=== PATIENT | female | born 1980 | race Caucasian/White ===

== ENCOUNTER 2016-05-18 08:04 | Emergency (ER) | payer OTHER ==
[2016-05-18 08:24] VITALS: BP 107/72
--- NOTE | 2016-05-18 09:34 | UC ---
Gem Ramirez SooYoung, scribed for Cecily Grubre DO on 05/18/16 at 0827 . Ear Complaint HPI - HPI Summary HPI Summary: A 35 y/o F presents to [facility] with c/o L ear pain onset last night. Pt states she had a "head cold" onset two days ago, but last night it "all went to L ear." Associated sx: muffled hearing, head congestion, mild nonproductive cough, sore throat resolved. Denies: SOB, CP, n/v, fever, abd pain. Pt is 37 weeks . A0. Denies complications during the prior or current . She's had a few contractions two days ago. No vag bleeding, no PAVON currently, no epigaastric pain or visual changes. She notes having peripheral tingling and numbness in hands and feet for past few weeks, but her OB-AIR H[facility]MER STRIPPER is aware, monitoring. - History of Current Complaint Chief Complaint: UCEar Stated Complaint: LEFT EAR PAIN Time Seen by Provider: 05/18/16 08:21 Hx Obtained From: Patient Hx Last Menstrual Period: 07/2015 ?: Yes Onset/Duration: Lasting Days, Still Present Severity Initially: Moderate Severity Currently: Moderate Pain Intensity: 6 Pain Scale Used: 0-10 Numeric Aggravating Factors: Nothing Alleviating Factors: Nothing Associated Signs/Symptoms: Positive: Hearing Loss - "muffled" - Allergies/Home Medications Allergies/Adverse Reactions: Allergies Allergy/AdvReac Type Severity Reaction Status Date / Time No Known Allergies Allergy Verified 09/23/15 15:25 Home Medications: Home Medications Acetaminophen [Tylenol] 05/18/16 [History] Lactobacillus [Probiotic] 05/18/16 [History] PMH/Surg Hx/FS Hx/Imm Hx Previously Healthy: Yes Endocrine History Of: Denies: Diabetes, Thyroid Disease Cardiovascular History Of: Denies: Cardiac Disorders, Hypertension Respiratory History Of: Denies: COPD, Asthma GI/ History Of: Denies: Ulcer - Surgical History Surgical History: None - Family History Known Family History: Positive: Hypertension Negative: Cardiac Disease, Diabetes - Social History Occupation: Employed Full-time Lives: With Family Alcohol Use: None Substance Use Type: None Smoking Status (MU): Never Smoked Tobacco Have You Smoked in the Last Year: No - Immunization History Most Recent Influenza Vaccination: patient requests Most Recent Tetanus Shot: 10/03/14 Most Recent Pneumonia Vaccination: not indicated Review of Systems Constitutional: Negative Skin: Negative Eyes: Negative ENT: Sore Throat - resolved, Ear Ache - L ear pain, muffled hearing, Other - pos : head congestion Respiratory: Cough - mild, nonproductive Cardiovascular: Negative Gastrointestinal: Negative Genitourinary: Negative Motor: Negative Neurovascular: Negative Musculoskeletal: Negative Neurological: Negative Psychological: Negative All Other Systems Reviewed And Are Negative: Yes Physical Exam Triage Information Reviewed: Yes Appearance: Well-Appearing, No Pain Distress, Well-Nourished Vital Signs: Initial Vital Signs Temp 98.2 F 05/18/16 08:11 Pulse 72 05/18/16 08:11 Resp 16 05/18/16 08:11 BP 107/72 05/18/16 08:11 Pulse Ox 99 05/18/16 08:11 Vital Signs Reviewed: Yes Eyes: Positive: Conjunctiva Clear. Negative: Discharge ENT: Positive: Hearing grossly normal, Pharyngeal erythema - mild, TM bulging, TM red. Negative: Tonsillar swelling, Tonsillar exudate, Trismus, Muffled/ hoarse voice Neck exam: Normal Neck: Positive: Supple Respiratory: Positive: Lungs clear, Normal breath sounds, No respiratory distress, No accessory muscle use Cardiovascular: Positive: RRR, No Murmur Musculoskeletal Exam: Normal Neurological: Positive: Alert, Muscle Tone Normal Psychological Exam: Normal Psychological: Positive: Age Appropriate Behavior Skin Exam: Normal, Other - pos: warm, dry, nml color Ear Complaint Course/Dx - Differential Dx/Diagnosis Differential Diagnosis/HQI/PQRI: Cerumen Impaction, Otitis Externa, Otitis Media , URI Provider Diagnoses: L otitis media Discharge - Discharge Plan Condition: Stable Disposition: HOME Prescriptions: Amoxicillin CAP* [Amoxicillin 500 MG CAP*] 500 mg PO Q12H #20 cap Patient Education Materials: Otitis Media (ED) Referrals: No Primary Care Phys,NOPCP [Primary Care Provider] - [facility] [place] [facility] [Outside] Additional Instructions: As we discussed: You can take the Amoxicillin prescription right away or you can wait 1 or 2 days to see if it improves on its own. Continue taking your probiotic supplement daily. Also add probiotic-friendly foods to your diet, such as kimchi , yogurt, sauerkraut, for 1 month after finishing the prescription. It is safe to take the Amoxicillin while breast-feeding. Follow-up with your OB-AIR H[facility]IPPER on Thursday as scheduled. FOLLOW-UP CARE: You should establish with a private physician for follow-up care. If you are unable to get a timely appointment, or if you are worsening, call us or return for re-evaluation. An additional resource available to assist in finding the appropriate physician for your health care needs is the Physician Referral Center. You may contact them by calling [phone]. The documentation as recorded by the Gem whalen SooYoung accurately reflects the service I personally performed and the decisions made by me, Cecily Gruber DO.
== END 2016-05-18 09:28 | disposition home or self-care (01) ==
LOC: UCEAST 08:04
DX: O26.893 Other specified pregnancy related conditions, third trimester (principal); H66.92 Otitis media, unspecified, left ear
CPT/HCPCS: 99212; G0463

== ENCOUNTER 2016-05-28 01:10 | Inpatient (IN) | payer OTHER ==
[2016-05-28 02:19] LABS: ROM Internal QC QC Line Present
[2016-05-28 02:50] LABS: Hematocrit 34 % (35-47); Hemoglobin 11.8 g/dl (12.0-16.0); Mean Corpuscular HGB Conc 35 g/dl (31-36); Mean Corpuscular Hemoglobin 30 pg (27-31); Mean Corpuscular Volume 87 fL (80-97); Mean Platelet Volume 9 um3 (7.4-10.4); Red Blood Count 3.87 10^6/ul (4.0-5.4); Red Cell Distribution Width 13 % (10.5-15); White Blood Count 10.6 10^3/ul (3.5-10.8)
[2016-05-28] MEDS ORDERED: OBEPIDURAL* 250 ML ONE (02:52)
[2016-05-28] MEDS ORDERED: HYDROmorphone* 1 MG/ML 1 ML SYR ONE (03:27)
[2016-05-28] MEDS ORDERED: fentaNYL* 50 MCG/ML 2 ML VIAL (100 MCG VIAL) ONE (03:28)
[2016-05-28] MEDS ORDERED: Oxytocin in LR* 20 UNITS/1,000 ML BAG IVPB ONE (05:54)
[2016-05-28] MEDS ORDERED: Erythromycin OPTH OINT* APPLIC OINT BOTH EYES ONE (06:16)
[2016-05-28] MEDS ORDERED: Glucose ORAL NICU* 30 ML TUBE BUCCAL PRN (06:16)
[2016-05-28] MEDS ORDERED: Phytonadione INJ* 1 MG/0.5 ML ML IM ONE (06:16)
[2016-05-28] MEDS ORDERED: Hepatitis B Vac PF(ENGERIX-B)* 10 MCG/0.5 ML ML IM ONE (06:16)
[2016-05-28] MEDS ORDERED: Glycerin ADULT SUPP PR PRN (06:18)
[2016-05-28] MEDS ORDERED: Witch Hazel PAD* JAR TOPICAL PRN (06:18)
[2016-05-28] MEDS ORDERED: Dibucaine 1% 28.35 GM TUBE PR PRN (06:18)
[2016-05-28] MEDS ORDERED: Oxytocin in LR* 20 UNITS/1,000 ML BAG IVPB SCH (07:00)
[2016-05-28] MEDS ORDERED: Sodium Citrate/Citric Acid* 15 ML UDC PO PRN (07:36)
[2016-05-28] MEDS ORDERED: Famotidine TAB* 20 MG PO PRN (07:36)
[2016-05-28] MEDS ORDERED: OBEPIDURAL* 250 ML EPIDURAL SCH (08:00)
[2016-05-28] MEDS ORDERED: Simethicone CHEW TAB* 80 MG PO SCH (08:30)
[2016-05-28] MEDS: Ibuprofen TAB* 600 MG PO PRN ×3 (09:20→20:59)
[2016-05-28] MEDS: Docusate CAP* 100 MG PO SCH ×3 (09:24→20:59)
[2016-05-28] MEDS: Acetaminophen TAB* 325 MG PO PRN (17:45)
[2016-05-29] MEDS: Acetaminophen TAB* 325 MG PO PRN (00:19)
[2016-05-29] MEDS: Ibuprofen TAB* 600 MG PO PRN ×2 (03:39→09:21)
[2016-05-29 06:52] LABS: Hematocrit 25 % (35-47); Hemoglobin 8.7 g/dl (12.0-16.0); Mean Corpuscular HGB Conc 35 g/dl (31-36); Mean Corpuscular Hemoglobin 31 pg (27-31); Mean Corpuscular Volume 88 fL (80-97); Mean Platelet Volume 9 um3 (7.4-10.4); Red Blood Count 2.84 10^6/ul (4.0-5.4); Red Cell Distribution Width 13 % (10.5-15); White Blood Count 9.4 10^3/ul (3.5-10.8)
[2016-05-29 08:04] VITALS: BP 111/71
[2016-05-29] MEDS ORDERED: Ferrous Gluconate TAB* 324 MG TAB PO SCH (09:00)
[2016-05-29] MEDS: Docusate CAP* 100 MG PO SCH (09:20)
== END 2016-05-29 13:26 | disposition home or self-care (01) | DRG 560 ==
LOC: MCHOBOUT 01:10 → MCHOB 02:24
PROVIDERS: ADMIT Obstetrics & Gynecology; ATTEND Obstetrics & Gynecology
PROC: 4A1HX4Z Monitoring of Products of Conception, Cardiac Electrical Activity, External Approach (ICD-10-PCS; principal; 2016-05-28)
PROC: 10E0XZZ Delivery of Products of Conception, External Approach (ICD-10-PCS; 2016-05-28)
PROC: 0KQM0ZZ Repair Perineum Muscle, Open Approach (ICD-10-PCS; 2016-05-28)
DX: O70.1 Second degree perineal laceration during delivery (principal); Z37.0 Single live birth; O90.81 Anemia of the puerperium; Z3A.38 38 weeks gestation of pregnancy
CPT/HCPCS: 36415; 84112; 85025; 85027; 86850; 86900; 86901; A9270-GY; J1170; J3010

== ENCOUNTER 2016-08-09 16:31 | Emergency (ER) | payer OTHER ==
[2016-08-09] MEDS ORDERED: Fluorescein Sodium TOPICAL* 1 MG TEST ONE (16:34)
[2016-08-09] MEDS ORDERED: Tetracaine 0.5% OPTH.SOL 4 ML* 1 DROP BTL ONE (16:35)
[2016-08-09] MEDS ORDERED: BSS OPTH.SOL* BTL ONE (16:35)
[2016-08-09 16:48] VITALS: BP 111/67
--- NOTE | 2016-08-09 16:49 | UC ---
Eye Complaint HPI - History of Current Complaint Chief Complaint: Fermin Stated Complaint: EYE COMPLAINT Time Seen by Provider: 08/09/16 16:31 Hx Obtained From: Patient, Family/Groundskeeping Maintenance Hx Last Menstrual Period: 07/2015 Onset/Duration: Gradual Onset - has had bad allergy symptoms for 2-3 weeks. today eyes were very itchy and she was rubbing them. noticed puffy area under L eye. pt took brittaney and nasal symps improved and puffy eye is slowly resolving. Timing: Constant Severity Initially: Moderate Severity Currently: Moderate Location of Injury: Conjunctiva - feels "gritty", dry, Eye Lid (lower) Aggravating Factor(s): Nothing Alleviating Factor(s): Nothing Associated Signs And Symptoms: Positive: Negative - Allergies/Home Medications Allergies/Adverse Reactions: Allergies Allergy/AdvReac Type Severity Reaction Status Date / Time No Known Allergies Allergy Verified 09/23/15 15:25 Home Medications: Home Medications Fexofenadine-Pseudoephedrine [Brittaney-D 24 Hour Allergy] 1 tab PO 08/09/16 [ History] PMH/Surg Hx/FS Hx/Imm Hx Previously Healthy: Yes - Surgical History Surgical History: None - Family History Known Family History: Positive: Hypertension Negative: Cardiac Disease, Diabetes - Social History 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 Lives: With Family Alcohol Use: Rare Substance Use Type: None Smoking Status (MU): Former Smoker Type: Cigarettes Have You Smoked in the Last Year: No Household Exposure Type: Cigarettes - Immunization History Most Recent Influenza Vaccination: 12/26/15 Most Recent Tetanus Shot: 10/03/14 Most Recent Pneumonia Vaccination: not indicated Review of Systems Constitutional: Negative Eyes: Eye Redness ENT: Sinus Congestion Respiratory: Cough - ocassional dry cough Cardiovascular: Negative Neurological: Negative Psychological: Negative All Other Systems Reviewed And Are Negative: Yes Physical Exam Triage Information Reviewed: Yes Appearance: Well-Appearing, No Pain Distress, Well-Nourished Vital Signs: Initial Vital Signs Temp 98.8 F 08/09/16 16:34 Pulse 57 08/09/16 16:34 Resp 18 08/09/16 16:34 BP 111/67 08/09/16 16:34 Pulse Ox 97 08/09/16 16:34 Vital Signs Reviewed: Yes Eyes: Positive: Conjunctiva Inflamed, Other: - minor swelling inferior L orbit, puffy in appearance. Negative: Discharge ENT: Positive: Pharynx normal, Nasal congestion - mild Respiratory Exam: Normal Respiratory: Positive: Chest non-tender, Lungs clear Cardiovascular Exam: Normal Musculoskeletal Exam: Normal Neurological Exam: Normal Psychological Exam: Normal Skin Exam: Normal Eye Complaint Course/Dx - Course Course Of Treatment: patient is breast feeding - Differential Dx/Diagnosis Differential Diagnosis/HQI/PQRI: Conjunctivitis, Corneal Abrasion, Foreign Body , Periorbital Cellulitis, Other - sinusitis, allergies Provider Diagnoses: environmental allergies Discharge - Discharge Plan Condition: Stable Disposition: HOME Patient Education Materials: Allergic Rhinitis (ED) Referrals: No Primary Care Phys,NOPCP [Primary Care Provider] - Additional Instructions: Try Rhinocort nasal spray -use as directed use claritin on bad allergy days return if symptoms worsen at anytime
== END 2016-08-09 17:15 | disposition home or self-care (01) ==
LOC: UCEAST 16:31
DX: T78.49XA Other allergy, initial encounter (principal); Z72.0 Tobacco use
CPT/HCPCS: 99211; A9270-GY; G0463

== ENCOUNTER 2018-05-07 15:58 | Emergency (ER) | payer OTHER ==
[2018-05-07 16:09] VITALS: BP 114/69
--- NOTE | 2018-05-07 17:51 | UC ---
UC General HPI - HPI Summary HPI Summary: Pt c/o persistent PAVON, and pelvic pain. Pt reports that she had Premenstural cramping 3 weeks ago, and then had heavier than normal menstrual flow. Pt was then seen environmental tech provider and had "blood work" done that pt only know revealed that she had negative . Pt reports that she was seen by environmental tech provider two days ago and had annual pa smear and PE. Pt states she has not heard any test results yet but provider stated "that everything looked normal" Pt has had persistent PAVON, and pelvic discomfort. - History of Current Complaint Chief Complaint: UCAbdominalPain Stated Complaint: ABDOMINAL PAIN, PELVIC PAIN, AND BACK PAIN Time Seen by Provider: 05/07/18 16:37 Hx Obtained From: Patient Hx Last Menstrual Period: 04/23/18 Onset/Duration: Gradual Onset, Lasting Weeks, Still Present Timing: Constant Onset Severity: Moderate Current Severity: Moderate Pain Intensity: 6 Associated Signs & Symptoms: Positive: Abdominal Pain, Back Pain, Headache, Nausea - Allergy/Home Medications Allergies/Adverse Reactions: Allergies Allergy/AdvReac Type Severity Reaction Status Date / Time No Known Allergies Allergy Verified 05/07/18 16:09 Home Medications: Home Medications Ibuprofen TAB* [Motrin TAB* 600 MG] 400 mg PO Q6H PRN 05/07/18 [History Confirmed 05/07/18] PMH/Surg Hx/FS Hx/Imm Hx Previously Healthy: Yes - Surgical History Surgical History: None - Family History Known Family History: Positive: Hypertension Negative: Cardiac Disease, Diabetes - Social History Occupation: Employed Full-time Lives: With Family Alcohol Use: Rare Substance Use Type: None Smoking Status (MU): Former Smoker Type: Cigarettes Have You Smoked in the Last Year: No Household Exposure Type: Cigarettes - Immunization History Most Recent Influenza Vaccination: 12/26/15 Most Recent Tetanus Shot: 10/03/14 Most Recent Pneumonia Vaccination: not indicated Review of Systems All Other Systems Reviewed And Are Negative: Yes Constitutional: Positive: Negative, Fatigue Skin: Positive: Negative Eyes: Positive: Negative ENT: Positive: Negative Respiratory: Positive: Negative Cardiovascular: Positive: Negative Gastrointestinal: Positive: Abdominal Pain, Nausea Genitourinary: Positive: Negative Motor: Positive: Negative Neurovascular: Positive: Negative Musculoskeletal: Positive: Negative Neurological: Positive: Headache Psychological: Positive: Negative Is Patient Immunocompromised?: No Physical Exam Triage Information Reviewed: Yes Appearance: Pain Distress Vital Signs: Initial Vital Signs Temp 99.4 F 05/07/18 16:02 Pulse 77 05/07/18 16:02 Resp 18 05/07/18 16:02 BP 114/69 05/07/18 16:02 Pulse Ox 97 05/07/18 16:02 Vital Signs Reviewed: Yes Eye Exam: Normal, Other - PERRLA ENT Exam: Normal ENT: Positive: Sinus tenderness Dental Exam: Normal Neck exam: Normal Respiratory Exam: Normal Cardiovascular Exam: Normal Abdominal Exam: Normal Abdomen Description: Positive: Nontender Bowel Sounds: Positive: Present Musculoskeletal Exam: Normal Neurological Exam: Normal Psychological Exam: Normal Skin Exam: Normal Diagnostics - Radiology No standard instances Radiology Interpretation Completed By: Radiologist - Ct Brain: IMPRESSION: NO EVIDENCE FOR ACUTE INTRACRANIAL ABNORMALITY. ultrasound: IMPRESSION: NEGATIVE EXAM. Course/Dx - Differential Dx - Multi-Symptom Differential Diagnoses: CVA, Urinary Tract Infection - Diagnoses Provider Diagnosis: Pelvic pain, Headache Discharge - Sign-Out/Discharge Documenting (check all that apply): Patient Departure All imaging exams completed and their final reports reviewed: Yes - Discharge Plan Condition: Stable Disposition: HOME Patient Education Materials: Acute Headache (ED), Pelvic Pain (ED) Referrals: Diane Cutler MD [Primary Care Provider] - As Soon As Possible - Billing Disposition and Condition Condition: STABLE Disposition: Home
== END 2018-05-07 18:43 | disposition home or self-care (01) ==
LOC: UCEAST 15:58
DX: R51 Headache (principal); R10.2 Pelvic and perineal pain; Z87.891 Personal history of nicotine dependence
CPT/HCPCS: 70450; 76830; 81003; 99211; G0463

== ENCOUNTER 2018-08-07 16:58 | Emergency (ER) | payer OTHER ==
[2018-08-07 17:07] VITALS: BP 93/57
--- NOTE | 2018-08-07 17:12 | UC ---
Skin Complaint HPI - HPI Summary HPI Summary: 37 yo female presents with rash to left inner thigh. She tells me that she noticed a red ring that was mildly itchy about 3 weeks ago. Didn't go away and she suspected it was ringworm and started applying an OTC antifungal cream to the area. It has decreased in redness and itching, but she has noticed another red curyung arise near the original one. Denies fever, chills, or recent illness. Denies tick bite or bug bite. She is unsure the name or ingredient in the OTC antifungal cream she is using. - History of Current Complaint Chief Complaint: UCGU Time Seen by Provider: 08/07/18 17:11 Stated Complaint: PERSONAL RASH Hx Obtained From: Patient Hx Last Menstrual Period: 04/23/18 Onset/Duration: Gradual Onset Current Severity: None Pain Intensity: 0 - Allergy/Home Medications Allergies/Adverse Reactions: Allergies Allergy/AdvReac Type Severity Reaction Status Date / Time No Known Allergies Allergy Verified 08/07/18 17:07 Home Medications: Home Medications Cetirizine* [ZyrTEC 10 MG TAB*] 10 mg PO DAILY 08/07/18 [History Confirmed 08/07] Tolnaftate [Antifungal Cream] 14.18 gm TP 08/07/18 [History] PMH/Surg Hx/FS Hx/Imm Hx - Additional Past Medical History Additional PMH: None - Surgical History Surgical History: None - Family History Known Family History: Positive: Hypertension Negative: Cardiac Disease, Diabetes - Social History Alcohol Use: Occasionally Substance Use Type: None Smoking Status (MU): Former Smoker Type: Cigarettes Have You Smoked in the Last Year: No Household Exposure Type: Cigarettes - Immunization History Most Recent Influenza Vaccination: 12/26/15 Most Recent Tetanus Shot: 10/03/14 Most Recent Pneumonia Vaccination: not indicated Review of Systems All Other Systems Reviewed And Are Negative: Yes Constitutional: Positive: Negative Skin: Positive: Rash Respiratory: Positive: Negative Cardiovascular: Positive: Negative Neurovascular: Positive: Negative Neurological: Positive: Negative Psychological: Positive: Negative Physical Exam - Summary Physical Exam Summary: GENERAL: NAD. WDWN. No pain distress. SKIN: LEFT INNER THIGH: 1.3cm diameter area of faint erythema with scaly border. Just adjacent to this there is another similar appearing lesion 6mm in diameter. No induration, warmth, streaking, open wound, or drainage. CHEST: No accessory muscle use. Breathing comfortably and in no distress. CV: Pulses intact. Cap refill <2seconds NEURO: Alert. PSYCH: Age appropriate behavior. Triage Information Reviewed: Yes Vital Signs: Initial Vital Signs Temp 98.9 F 08/07/18 17:04 Pulse 72 08/07/18 17:04 Resp 18 08/07/18 17:04 BP 93/57 08/07/18 17:04 Pulse Ox 100 08/07/18 17:04 Vital Signs Reviewed: Yes Course/Dx - Course Course Of Treatment: Suspect tinea corporis. Will rx for terbinafine topical and po, but it is unlikely that the oral medication will be covered by her insurance. Thus, I have advised her to call dermatology to schedule an appointment if she is only able to get the topical cream and does not improve. - Diagnoses Provider Diagnosis: Tinea corporis Discharge - Sign-Out/Discharge Documenting (check all that apply): Patient Departure All imaging exams completed and their final reports reviewed: No Studies - Discharge Plan Condition: Stable Disposition: HOME Prescriptions: Terbinafine HCl [Antifungal] 15 gm TOPICAL BID #1 tube Terbinafine HCl 250 mg PO DAILY #14 tablet Patient Education Materials: Tinea Corporis (ED) Referrals: Diane Cutler MD [Primary Care Provider] - Iam Boone MD [Medical Doctor] - As Soon As Possible Additional Instructions: If you develop a fever, shortness of breath, chest pain, new or worsening symptoms - please call your PCP or go to the ED immediately. 1) I recommend that you call Dermatology at the number below to schedule an appointment for a recheck in 1-2 weeks - Billing Disposition and Condition Condition: STABLE Disposition: Home
== END 2018-08-07 17:30 | disposition home or self-care (01) ==
LOC: UCEAST 16:58
DX: B35.4 Tinea corporis (principal); Z87.891 Personal history of nicotine dependence
CPT/HCPCS: 99212; G0463

== ENCOUNTER 2018-09-07 08:07 | Emergency (ER) | payer BC, OTHER ==
--- OUTSIDE RECORDS SUMMARY | 2018-09-07 08:27 | XMS REPORT | Continuity of Care Document ---
:1980 Author Organization [facility] Address [address] [place], [place] [id number] Phone Care Team Providers Name Role Phone Emilia Becker NP Unavailable Unavailable Allergies, Adverse Reactions, Alerts Substance Reaction Status No Known Allergies Active Medications Medication Instructions Dosage Effective Dates Status Comments (start - stop) Apri 0.15 mg-0.03 take 1 tablet by 1.00 tablet - Active mg tablet oral route every day [id number] Administer 250 - No Longer Ultra-Filtered PLUS unit IM Active 250 unit (50 mcg) intramuscular syringe Problems Condition Effective Dates (start Clinical Status Comments - stop) Encntr screen for dis of the bld/bld-form org/immun [facility] Encounter for test, result positive Encounter for elective termination of Less than 8 weeks gestation of Encounter for initial prescription of contraceptive pills Unspecified blood type, Rh negative RhD negative - Active Self reported. PW Procedures Procedure Date No information Results Test Name Date and Time Measure Units Reference Range Abnormal Flag Status Comments No information Advance Directives Directive Yes / No Effective Date File Name No information Encounters Encounter Practice Location Reason(s) Diagnoses Date Provider Providers Description For Visit Copied on Encounter [facility] [place] [facility]. [facility] [address] [facility], [address] [facility], , [place], [address], [id number], [place]. [place] tel:[phone] [facility] Encntr [facility] the [facility]. Provider: [facility] bld/bld-form [address] org/immun [place] [place] for test, [place], [place], [place], [place], [place], [place] [address], [place], [address]. [phone], for elective [place]. [place] termination of tel:[phone] pregnancyLess than [id number] 8 weeks gestation of pregnancyEncounter for initial prescription of contraceptive pillsUnspecified blood type, Rh negative Family History Family Member Diagnosis Age At Onset 1st degree relative No hx of venous thromboembolism 1st degree relative No hx of cancer of breast, colon, endometrium or ovary 1st degree relative No hx of coronary heart disease (female <65, male <55) Immunizations Vaccine Date Status Comments No information Payers Payer name Insurance type Covered green party ID Authorization(s) [facility] [id number] Social History Type Description Quantity Date Captured Comments Alcohol Use Details Unknown Caffeine Use Details Unknown Tobacco Use Status Unknown Smoking Status Never smoker Sex Female Vital Signs Date / Height Weight BMI Pulse Blood Temperature Respiratory Body Head BMI Pulse Inhaled Time: Rate Pressure Rate Surface Circumference percentile Ox Ox Area No information Chief Complaint And Reason For Visit No information Reason For Referral Reason For Referral No information Plan Of Treatment Date Type Action Status Appointment THERON RUST BOOKED History Of Present Illness Encounter Date Complaint History Of Present Illness No information Functional Status Date Functional Assessment No information Medications Administered Medication Instructions Dosage Effective Dates (start - stop) Status Comments No information Instructions Date Instruction Additional Information No information Assessments Type Assessment Date No information Goals Health Concern Goal Type Priority Status Date No information Medical Equipment Description Device [place] Device Identifier Effective Dates (start - stop ) Status No information Mental Status Date Cognitive Assessment No information Health Concerns Observation Date No information Concern Status Date No information
--- OUTSIDE RECORDS SUMMARY | 2018-09-07 08:27 | XMS REPORT | Continuity of Care Document ---
:1980 External Reference #:[id number] Author Name Juan Torres MD Address [address] [place] [address] Care Team Providers Name Role Phone Marnie Bennett MD Care Team Information [employer]er Unavailable Payers Date Identification Numbers Payment Provider Subscriber Expires: 2014 Policy Number: [id number] [employer] [facility] Luly López Group Number: BALDOMERO Romero [address] PayID: [id number] [address] Expires: 2014 Policy Number: Lifetime Benefit Luly López [id number] Solutions PayID: [id number] [address] [place] [address] Expires: 2015 Policy Number: [facility] Care Luly López [id number] (alpha) Group Number: [id number] [address] PayID: [id number] [place] [address] Effective: 2015 Policy Number: Lifetime Benefit Luly López [id number] Solution PayID: [id number] [address] [address] [place] [address] Policy Number: [id number] [facility] (alpha) Luly López PayID: [id number] [address] [place] [address] Problems Active Problems Provider Date Gestation period, 36 weeks Onset: 12/02/2014 Vaginal delivery Onset: 12/02/2014 Family History Date Family Member(s) Observation Comments Father Asthma Mother Asthma Mother Mother Adopted does not know Family hx Children 2 First Daughter A&W Second Daughter A&W Siblings 3 First Brother Asthma First Sister Asthma Second Sister Asthma Paternal Grandfather due to Heart Disease () Paternal Grandmother due to Diabetes () Maternal Grandfather Unknown Maternal Grandmother Unknown Social History Type Date Description Comments Sex Unknown Education Highest Level Completed, and CSA Master's Degree Marital Status Lives With Lives With Daughters Pets 1 dog Occupation [employer] Tobacco Use Start: Unknown Former Social Smoker ETOH Use Occasional Alcohol Use Tobacco Use Start: Unknown End: Patient is a former smoker Unknown Recreational Drug Use Denies Drug Use Smoking Status Reviewed: 08/09/18 Patient is a former smoker Exercise Type/Frequency Exercises regularly Seat Belt/Car Seat Always uses seat belt Currently Active Patient is currently sexually active Contraceptive Methods None STD's HPV Allergies, Adverse Reactions, Alerts Active Allergies Reaction Severity Comments Date NKDA 01/27/2012 Environmental 05/17/2014 Medications Active Medications SIG Qnty Indications Ordering Provider Date No Active Medications Unknown 05/05/2018 History Medications Macrobid Twice Daily 20caps Unknown 09/23/2015 - 100mg Capsules 11/26/2015 Fiberchoice Plus JOEL Humphries 05/17/2014 - Calcium 08/28/2015 8-283-458GA-mg-Unit Chewtabs Clomid take 2 tab by 10tabs Gwendolyn Perez, 06/29/2013 - 50mg Tablets mouth daily from 04/19/2014 days 5-9 of your cycle Multi-Vitamin Unknown 01/27/2012 - Tablets 05/17/2014 Probiotic 1 po qd Unknown - Capsules 05/05/2018 Vitamin Unknown - 05/05/2018 Medications Administered in Office Medication SIG Qnty Indications Ordering Provider Date PT SCRN Tbco Id as Non User Juan Torres MD 08/09/2018 Injection No PT Tbco SCRN RNG JOEL Humphries 05/05/2018 Injection PT SCRN Tbco Id as Non User JOEL Humphries 05/05/2018 Injection Injection Rho (D) Immune Fernando Alejo M.D. 03/20/2016 Globulin, Human, One Dose Package Injection Injection Rho (D) Immune Juan Torres MD 10/03/2014 Globulin, Human, One Dose Package Injection Immunizations CPT Code Status Date Vaccine Lot # [id number] Given 03/20/2016 Tetnus, Diptheria Toxoids And Acellular Pertussis, [id number] PT > 7Yrs Old 98100 Given 12/26/2015 Influenza Virus Vaccine, Quadrivalent, Split, [id number] Preservative Free 67015 Given 10/03/2014 Tetnus, Diptheria Toxoids And Acellular Pertussis, [id number] PT > 7Yrs Old Vital Signs Date Vital Result Comment 08/09/2018 3:03pm BP Systolic 98 mmHg BP Diastolic 62 mmHg Height 56 inches 4'8" Weight 100.00 lb BMI (Body Mass Index) 22.4 kg/m2 Last Menstrual Period 5565636 4 Parity 2 06/17/2018 10:07am BP Systolic 108 mmHg BP Diastolic 60 mmHg Height 56 inches 4'8" Weight 96.00 lb BMI (Body Mass Index) 21.5 kg/m2 Last Menstrual Period 0805590 4 Parity 2 05/05/2018 8:03am BP Systolic 100 mmHg BP Diastolic 54 mmHg Height 56 inches 4'8" Weight 96.00 lb BMI (Body Mass Index) 21.5 kg/m2 Last Menstrual Period 8668901 4 Parity 2 07/01/2016 3:33pm BP Systolic 102 mmHg BP Diastolic 64 mmHg Height 56 inches 4'8" Weight 109.00 lb BMI (Body Mass Index) 24.4 kg/m2 4 Parity 2 11/26/2015 2:31pm BP Systolic 104 mmHg BP Diastolic 72 mmHg Height 56 inches 4'8" Weight 102.00 lb BMI (Body Mass Index) 22.9 kg/m2 4 Parity 1 09/23/2015 12:00am BP Systolic 106 mmHg BP Diastolic 57 mmHg Body Temperature 98.2 F Heart Rate 60 /min Respiratory Rate 16 /min Height 56 inches Weight 93.00 lb 08/28/2015 8:06am BP Systolic 112 mmHg BP Diastolic 72 mmHg Height 55 inches 4'7" Weight 96.00 lb BMI (Body Mass Index) 22.3 kg/m2 Last Menstrual Period 5054585 3 Parity 1 01/15/2015 1:54pm BP Systolic 104 mmHg BP Diastolic 62 mmHg Height 55 inches 4'7" Weight 102.00 lb BMI (Body Mass Index) 23.7 kg/m2 Last Menstrual Period 4064499 3 Parity 1 05/17/2014 8:53am BP Systolic 110 mmHg BP Diastolic 70 mmHg Height 55 inches 4'7" Weight 99.00 lb BMI (Body Mass Index) 23.0 kg/m2 Last Menstrual Period 3222859 3 Parity 0 12/07/2013 3:16pm BP Systolic 102 mmHg BP Diastolic 48 mmHg Height 55 inches 4'7" Weight 96.00 lb BMI (Body Mass Index) 22.3 kg/m2 2 Parity 0 06/29/2013 2:51pm BP Systolic 112 mmHg BP Diastolic 72 mmHg Height 55 inches 4'7" Weight 96.00 lb BMI (Body Mass Index) 22.3 kg/m2 Last Menstrual Period 5645578 1 Parity 0 06/17/2013 9:39am BP Systolic 104 mmHg BP Diastolic 64 mmHg Height 55 inches 4'7" Weight 95.00 lb BMI (Body Mass Index) 22.1 kg/m2 Last Menstrual Period 9526482 1 Parity 0 01/27/2012 9:58am BP Systolic 92 mmHg BP Diastolic 60 mmHg Height 55 inches 4'7" Weight 95.00 lb BMI (Body Mass Index) 22.1 kg/m2 Last Menstrual Period 0345622 1 Results Test Date Facility Test Result H/L Range Note Laboratory test 06/17/2018 [facility] Surgical SEE RESULT [address] [place] [address] Pathology BELOW [phone] Laboratory test 05/05/2018 [facility] Cytology SEE RESULT lgil.+hpv [address] [place] [address] BELOW [phone] Laboratory test 04/29/2018 [facility] HCG < 0.60 [address] [place] [address] mIU/mL [phone] Urinalysis 05/18/2016 [facility] Urine Color Yellow N 4 [place] [address] [phone] Urine Appearance Cloudy N Urine Specific Bunn 1.023 N 1.010-1.030 Urine pH 5.0 N 5-9 Urine Urobilinogen Negative N Negative Urine Ketones Trace Abnormal Negative Urine Protein 1+(30 mg/dL) Abnormal Negative Urine Leukocytes 3+ Abnormal Negative Urine Blood 3+ Abnormal Negative * * Abnormal Negative 5 Urine Nitrite Negative N Negative Urine Bilirubin Negative N Negative Urine Glucose Negative N Negative Urine White Blood Cell 3+(>20/hpf) Abnormal Absent Urine Red Blood Cell 3+(>10/hpf) Abnormal Absent Urine Bacteria 1+ Abnormal Absent Urine Squamous Epithelial Cell Present Abnormal Absent Urine Culture And 05/18/2016 [facility] Urine Culture SEE RESULT 6 [place] [address] BELOW [phone] Laboratory test 05/18/2016 [facility] Rupture of Negative N 7 [place] [address] Membranes [phone] Laboratory test 05/06/2016 [facility] Genital For SEE RESULT 8 [place] [address] GRP B Strep BELOW [phone] Only Laboratory test 03/20/2016 [facility] Glucose 1 HR 108 mg/dL N 70-16 9 [place] [address] Post Prandial 0 [phone] CBC With No Diff 03/20/2016 [facility] White Blood 9.3 10^3/uL N 3.5-1 [place] [address] Count 0.8 [phone] Red Blood Count 3.62 10^6/uL Low 4.0-5.4 Hemoglobin 11.1 g/dL Low 12.0-16.0 Hematocrit 34 % Low 35-47 Mean Corpuscular Volume 93 fL N 80-97 Mean Corpuscular Hemoglobin 31 pg N 27-31 Mean Corpuscular HGB Conc 33 g/dL N 31-36 Red Cell Distribution Width 14 % N 10.5-15 Platelet Count 183 10^3/uL N 150-450 Mean Platelet Volume 9 um3 N 7.4-10.4 Laboratory test 03/20/2016 [facility] AB Screen NEGATIVE N [address] [place] [address] [phone] Sequential 12/26/2015 [facility] Interpretation SEE BELOW 11 Integreated SCRN 2 [place] Risk For Ontd 1:5000 Age Risk Down Syndrome 1:330 BERNARD Down Syndrome Risk 1:4200 <1:270 BERNARD Trisomy 18 Risk <1:5000 <1:100 Calculated Gestational Age 15.9 12 Afp,Serum 44.6 ng/mL Afp Mom 1.06 13 HCG,Serum 69.2 IU/mL HCG Mom 1.49 Estriol,Free 0.88 ng/mL Estriol Mom 0.94 Inhibin A,Dimeric 272 pg/mL Inhibin A Mom 1.28 La-A 567.8 ng/mL 14 La-A Mom 0.82 NT Mom 1.20 15 Referring Physician Name EFRAÍN Referring Physician Phone [phone] Referring Physician Npi [id number] Specimen # From Part 1 [id number] Date Of 1980 Collection Date 12/26/2015 Maternal Weight 102 lbs Est'd Date Of Delivery 06/11/2016 Nuchal Translucency 1.5 mm Regina Rump Length 51 mm Ultrasound Date 11/26/2015 Nasal Bone NOT GIVEN Mother's Ethnic Origin Insulin Depend Diabetic N Repeat Specimen N Number Of Fetuses 1 HX Of Neural Tube Defects N Twin B Nasal Bone NOT GIVEN 16 GC/Chlamydia Dna 11/26/2015 [facility] Chlamydia [place] [address] trachomatis Rna [phone] Neisseria gonorrhoeae (GC) Rna Negative N Negative Sequential Integrated SCRN 1 [place] 11/26/2015 [facility] Interpretation SEE BELOW 17 Age Risk Down Syndrome 1:250 BERNARD Down Syndrome Risk IN PROCESS <1:50 BERNARD Trisomy 18 Risk IN PROCESS <1:100 Calculated Gestational Age 11.6 18 La-A 567.8 ng/mL 19 La-A Mom 0.82 HCG,Serum 138.3 IU/mL HCG Mom 1.15 NT Mom 1.20 20 Referring Physician Name NESHA MADRIGAL 21 Referring Physician Phone [phone] Referring Physician Npi [id number] Date Of 1980 24 Collection Date 11/26/2015 25 Maternal Weight 102 lbs 26 Est'd Date Of Delivery 06/11/2016 27 SHAHNAZ Determined By US 28 Mother's Ethnic Origin 29 Number Of Fetuses 1 30 Insulin Depend Diabetic N 31 Repeat Specimen N 32 HX Of Neural Tube Defects N 33 Prev Down Synd N 34 Donor Egg N 35 Donor Age:Egg Retrieval N 36 Ultrasound Date NOT GIVEN 37 Poker Prop Player's Name CHASIDY KOCH 38 NTQR Poker Prop Player Id# [id number] NTQR Location Id# [id number] NTQR Reading Phys Id# [id number] FMF Poker Prop Player Id# NOT GIVEN 42 Regina Rump Length 51 mm 43 Nuchal Translucency 1.5 mm 44 Nasal Bone NOT GIVEN 45 If Twins NOT GIVEN 46 Twin B CRL NOT GIVEN mm 47 Twin B NT NOT GIVEN mm 48 Twin B Nasal Bone NOT GIVEN 49 Urine Culture And 11/26/2015 [facility] Urine SEE RESULT 50 [place] [address] Culture BELOW [phone] PNL No 11/26/2015 [facility] Rubella Immune [place] [address] Screen IU/mL [phone] Hemoglobin A1c 5.2 % N Less than 6.0 51 Hepatitis B Surface Ag Nonreactive N Nonreactive Syphillis Igg W/Reflex RPR Nonreactive N Nonreactive 52 CBC With No 11/26/2015 [facility] White Blood 6.9 10^3/uL N 3.5-10.8 [place] [address] Count [phone] Red Blood Count 4.17 10^6/uL N 4.0-5.4 Hemoglobin 12.4 g/dL N 12.0-16.0 Hematocrit 38 % N 35-47 Mean Corpuscular Volume 91 fL N 80-97 Mean Corpuscular Hemoglobin 30 pg N 27-31 Mean Corpuscular HGB Conc 33 g/dL N 31-36 Red Cell Distribution Width 14 % N 10.5-15 Platelet Count 221 10^3/uL N 150-450 Mean Platelet Volume 10 um3 N 7.4-10.4 Type And Screen 11/26/2015 [facility] Antibody [place] [address] [phone] Patient Blood Type AB Negative N Parvovirus B19 11/26/2015 [facility] Parvovirus (B19) 0.25 index N <0.90 53 Igg [place] [address] IgG Antibody [phone] Parvovirus (B19) IgM Antibody 0.05 index N <0.90 54 Parvovirus Interpretation See Comment N 55 Lead 11/26/2015 [facility] Lead <1.0 g/dL N 0.0-4.9 56 [place] [address] [phone] HIV 1/2 AB 11/26/2015 [facility] HIV 1 2 Nonreactive N Nonreactive 57 [place] [address] Antibody [phone] Urine Culture 09/23/2015 [facility] Urine SEE RESULT 58, [place] [address] Culture BELOW 59 Sensitivities [phone] Laboratory test 08/28/2015 [facility] Cytology SEE RESULT [address] [place] [address] BELOW [phone] Human Papilloma Virus Rna Negative N Negative 61 Laboratory test 12/02/2014 [facility] Rupture of Membrane N No rupture [address] [place] [address] Membranes Rupture [phone] Laboratory test 11/23/2014 [facility] Genital For SEE RESULT [address] [place] [address] GRP B Strep BELOW [phone] Only Laboratory test 10/03/2014 [facility] Glucose 1 HR 109 mg/dL N 70-[address] [place] [address] Post Prandial [phone] CBC With No 10/03/2014 [facility] White Blood 8.8 10^3/uL N 4.8-10.8 [place] [address] Count [phone] Red Blood Count 3.43 10^6/uL Low 4.0-5.4 Hemoglobin 10.9 g/dL Low 12.0-16.0 Hematocrit 32 % Low 35-47 Mean Corpuscular Volume 94 fL N 80-97 Mean Corpuscular Hemoglobin 32 pg High 27-31 Mean Corpuscular HGB Conc 34 g/dL N 31-36 Red Cell Distribution Width 13 % N 10.5-15 Platelet Count 184 10^3/uL N 150-450 Mean Platelet Volume 8 um3 N 7.4-10.4 Laboratory test 10/03/2014 [facility] AB [place] [address] [phone] Serum Integrated 07/13/2014 [facility] Interpretation SEE BELOW 64 Screen Part 2 [place] Risk For Ontd 1:3800 Age Risk Down Syndrome 1:460 BERNARD Down Syndrome Risk <1:5000 <1:270 [facility] Trisomy 18 Risk <1:5000 <1:100 Calculated Gestational Age 16.0 Afp,Serum 59.3 ng/mL Afp Mom 1.36 65 HCG,Serum 80.2 IU/mL HCG Mom 1.74 Estriol,Free 1.39 ng/mL Estriol Mom 1.40 Inhibin A,Dimeric 257 pg/mL Inhibin A Mom 1.20 Al-A 795 ng/mL La-A Mom 0.82 66 Referring Physician Name NESHA MADRIGAL Referring Physician Referring Physician Melissa NG Specimen # From Part 1 [id number] Date Of 1980 Collection Date 07/13/2014 Maternal Weight 99 lbs Est'd Date Of Delivery 12/28/2014 Mother's Ethnic Origin Insulin Depend Diabetic NO Repeat Specimen NO Number Of Fetuses 1 HX Of Neural Tube Defects NO 67 Serum Integrated SCRN Part 1 [place] 06/12/2014 [facility] Comment SEE BELOW 68 Referring Physician Name NESHA MADRIGAL 69 Referring Physician Phone [phone] Referring Physician Npi [id number] Date Of 1980 72 Collection Date 06/12/2014 73 Maternal Weight 99 LBS 74 Est'd Date Of Delivery 12/28/2014 75 SHAHNAZ Determined By U 76 Mother's Ethnic Origin 77 Number Of Fetuses 1 78 Insulin Depend Diabetic NO 79 Repeat Specimen NO 80 HX Of Neural Tube Defects NO 81 Brief History (NTD) NOT GIVEN 82 Prev Down Synd NO 83 Donor Egg NO 84 Donor Age:Egg Retrieval NOT GIVEN 85 Cystic Fibrosis Carrier ([place]) 05/17/2014 [facility] Reported Ethnicity see note 86 CF Result see note 87 Interpretation see note 88 Mutations/Polymorphisms see note 89 Method see note 90 Reviewer see note 91 Parvovirus B19 AB 05/17/2014 [facility] Parvovirus B19 AB (Igm) 0.1 index < 0.9 92 (Igg,M) Parvovirus B19 AB (Igg) 0.4 index <0.9 PNL No 05/17/2014 [facility] Rubella Screen Immune IU/ mL N Immune 93 [place] [address] [phone] Hemoglobin A1c 5.3 % N Less than 6.0 94 Hepatitis B Surface Antigen Nonreactive N Nonreactive 95 GC/Chlamydia Dna 05/17/2014 [facility] Chlamydia Negative [place] [address] trachomatis Rna [phone] Neisseria gonorrhoeae (GC) Rna Negative N Negative 96 Laboratory 05/17/2014 [facility] Human POSITIVE Abnormal Negative 97 [place] [address] Papilloma [phone] Virus Rna CBC With No 05/17/2014 [facility] White Blood 5.7 10^3/uL N 4.8-10.8 [place] [address] Count [phone] Red Blood Count 4.18 10^6/uL N 4.0-5.4 Hemoglobin 12.7 g/dL N 12.0-16.0 Hematocrit 38 % N 35-47 Mean Corpuscular Volume 91 fL N 80-97 Mean Corpuscular Hemoglobin 31 pg N 27-31 Mean Corpuscular HGB Conc 34 g/dL N 31-36 Red Cell Distribution Width 13 % N 10.5-15 Platelet Count 241 10^3/uL N 150-450 Mean Platelet Volume 10 um3 N 7.4-10.4 HIV 1/2 AB 05/17/2014 [facility] HIV 1 2 Nonreactive N Nonreactive [address] [place] [address] Antibody [phone] RPR 05/17/2014 [facility] Syphilis IgG [place] [address] [phone] RPR Nonreactive N Nonreactive RPR Titer TNP N Pediatric/Maternal YES N Urine Culture And 05/17/2014 [facility] Urine Culture (SEE NOTE ) 99 [place] [address] [phone] Laboratory test 05/17/2014 [facility] Cytology RUN DATE: [address] [place] [address] 05/18/ <SEE [phone] NOTE> Type And Screen 05/17/2014 [facility] Patient [place] [address] Type [phone] Antibody Screen NEGATIVE N Laboratory 04/26/2014 [facility] Beta HCG 84255.00 High 0.0- 5.0 [address] [place] [address] Quantitative IU/mL [phone] Laboratory 04/24/2014 [facility] Beta HCG 3924.00 High 0.0- 5.0 102 [place] [address] Quantitative IU/mL [phone] Progesterone 22.1 ng/mL N 103 Laboratory 12/07/2013 [facility] Beta HCG 4.77 N 0.0-5.0 [address] [place] [address] Quantitative IU/mL [phone] Laboratory 12/05/2013 [facility] Beta HCG 10.40 High 0.0-5.0 [address] [place] [address] Quantitative IU/mL [phone] Laboratory 07/02/2013 [facility] Prolactin 18.0 N 1.0-25.0 [place] [address] ng/mL [phone] Laboratory 06/18/2013 [facility] Anti Mullerian 3.0 N 0.9-9.5 106 [place] [address] Hormone ng/mL [phone] Dhea Sulfate 172 g/dL N 31-228 107 Estradiol 52.000 pg/mL N 108 Follicle Stimulating Hormone 7.4 IU/mL N 109 Luteinizing Hormone 7.0 IU/mL N 110 Prolactin 37.1 ng/mL High 1.0-25.0 Free T4 0.89 ng/mL N 0.61-1.12 TSH (Thyroid Stimulating Horm) 5.47 IU/mL N 0.34-5.60 Testosterone 47.27 ng/dL N 8-60 Laboratory test 01/27/2012 [facility] Cytology RUN DATE: [address] [place] [address] <SEE [phone] NOTE> Laboratory test 01/27/2012 [facility] Beta HCG 3.0 MIU/ML 0.0 -5 [address] [place] [address] Quantitative .0 [phone] 1 SEE RESULT BELOW Name: LULY LÓPEZ : [address]: Juan Torres MD Acct: [id number] Unit: [id number] AGE: 37 Location: [facility] Re06/17/18 SEX: F Status: REG REF SPEC: [id number] SHANAE: 06/17/18-[address] [facility] [address]: Juan Torres MD REQ: [id number] RECD: 06/17/18 STATUS: SOUT _ ORDERED: LEVEL 4, IMMUNO-FIRST COMMENTS: [id number] FINAL DIAGNOSIS Uterus, cervix, biopsy: -- 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 Comment: An immunohistochemical stain for p16 is performed with appropriate controls and supports the above rendered diagnosis. Dr. Abebe has reviewed this case and concurs. CLINICAL HISTORY No history given. GROSS DESCRIPTION The specimen is received in formalin labeled, Cervical Biopsy, and consists of a brush-like device with an adherent 0.5 x 0.2 x 0.1 cm aggregate of fowler irregular soft tissue fragments which is filtered and submitted entirely in one cassette. Signed by and Reported on: Trace Matos MD 1237 END OF REPORT DEPARTMENT OF PATHOLOGY, [address] [place] [address] Trace Matos M.D. Director [facility] # [id number] 2 SEE RESULT BELOW Name: LULY LÓPEZ : [address]: Nesha Juárez Acct: [id number] Unit: [id number] AGE: 37 Location: [facility] Re05/05/18 SEX: F Status: REG REF SPEC: [id number] SHANAE: 05/05/[address]: Nesha CASTILLO C REQ: [id number] RECD: 05/05/18 STATUS: SOUT _ ORDERED: TP IMAGE ANALYS, STOKER MECHANIC PHYS INTERP, HPV/Thin Prep COMMENTS: [id number] EPITHELIAL CELL ABNORMALITIES Low grade squamous intraepithelial lesion (LSIL) Date Time Test Result Flag (u) Normal Range 05/05/18 0849 @ HPV RNA POSITIVE An Negative @ @ The high-risk HPV types detected by the assay include: 16, @ 18, 31, 33, 35, 39, 45, 51, 52, 56, 58, 59, 66, and 68. A. Ectocervical/Endocervical Specimen Adequacy: Satisfactory of evaluation Transformation zone component identified Patient Information: HPV: High risk HPV RNA testing regardless of pap results. Actual Specimen Date: 05/05/18 Last Menstrual Date: 04/25/18 Date of Last Specimen: 08/28/15 Signed by and Reported on: Chiqui Abebe MD 05/07/18 5346 This Pap test was evaluated with the assistance of the PharmapodPrep Test Imaging System. Due to cytologic findings at the party plan sales unit sales leader microscope, comprehensive manual rescreening by a Health Promoter may be required. The Pap Smear is a screening test designed to aid in the detection of premalignant and malignant conditions of the uterine cervix. It is not a diagnostic procedure and should not be used as the sole means of detecting cervical cancer. Both false- positive and false- negative reports do occur. Depending on your risk status, a Pap smear should be obtained and evaluated every 1-3 years. END OF REPORT DEPARTMENT OF PATHOLOGY, [address] [place] [address] Trace Matos M.D. Director [facility] # [id number] 3 <5.0 Negative 5.0 - 25.0 Indeterminate (Repeat testing recommended after 72 hours) >25.0 Positive Perimenopausal women can display HCG levels of up to 20 mIU/mL 4 left message regarding results.pt instructed on message if still bleeding or dysuria to call office. keg 5 *Ascorbic acid is present which may interfere with detection of blood. 6 SEE RESULT BELOW Name: LULY LÓPEZ : [address]: Marnie Bennett MD Acct: [id number] Unit: [id number] AGE: 35 Location: [facility] Re05/18/16 SEX: F Status: DEP REF SPEC: [id number] SHANAE: 05/18/16-[address]: Marnie Bennett MD REQ: [id number] RECD: 05/18/16 STATUS: GLENN SHARMA DR: Diya Primary Care Phys,[facility] _ SOURCE: URINE SPDESC: ORDERED: Urine Culture Procedure Result Reported Site Urine Culture Final 05/19/16- 1618 ML No Growth (<1,000 CFU/mL) * ML - [facility] ([facility]) . END OF REPORT * ML=Testing performed at Main Lab DEPARTMENT OF PATHOLOGY, [address] [place] [address] Trace Matos M.D. Director [facility] # [id number] 7 A NEGATIVE results indicates there is no evidence of membrane rupture. 8 SEE RESULT BELOW Name: LULY LÓPEZ : [address]: Juan Torres MD Acct: [id number] Unit: [id number] AGE: 35 Location: [facility] Re05/06/16 SEX: F Status: REG REF SPEC: [id number] SHANAE: 05/06/[address] [facility] [address]: Juan Torres MD REQ: [id number] RECD: 05/06/16 STATUS: COMP _ SOURCE: CER/VAG/RE SPDESC: ORDERED: Grp B Strp Scrn COMMENTS: [id number] QUERIES: Is Patient Penicillin Allergic? N Is patient penicillin allergic and/or sensitivities needed? N Provider Requisition # [id number]_ Procedure Result Reported Site Group B Strep Culture Screen Final 05/08/16954 ML Group B Strep Screen Negative * ML - MAIN LAB ([facility]) . END OF REPORT * ML=Testing performed at Main Lab DEPARTMENT OF PATHOLOGY, [address] [place] [address] Trace Matos M.D. Director [facility] # [id number] 9 [id number] 11 SCREEN NEGATIVE FOR OPEN NTD, DOWN SYNDROME AND TRISOMY 18. NT WAS USED IN THE RISK CALCULATIONS. 12 Regina rump length (CRL) was used to calculate gestational age. SHAHNAZ, if provided, was not used for gestational age dating. 13 Reference Range: <2.50 IDD <1.90 TWINS <4.00 TWINS IDD <3.50 TRIPLETS <4.50 14 This test was performed using a kit that has not been cleared or approved by the FDA. The analytical performance characteristics of this test have been determined by [facility]. This test should not be used for diagnosis without confirmation by other medically established means. 15 The Sequential Integrated Screen combines LA-A and hCG with or without a nuchal translucency measurement in the first trimester with AFP, unconjugated estriol, intact hCG and Inhibin A in the second trimester. This provides a useful screening test for detection of open neural tube defects, Down syndrome and Trisomy 18. It should be noted that normal results can never guarantee the of a normal baby and that 2 to 3 percent of newborns have some type of physical or mental defect, many of which are undetectable through any known diagnostic technique. Interpretation reviewed by: Michael Norris, Ph.D., [facility] This is a screening test, not a diagnostic test. This risk assessment is based on demographic data provided by the ordering physician. Please notify the laboratory promptly if any data are incorrect. If you have questions concerning this report: For clinical consultation, call ; For technical questions, call ext [phone]; For recalculations, fax to [phone]. 16 For additional information, please refer to http://education.[employer]/faq/FAQ94 (This link is provided for informational/educational purposes only.) 17 This patient's risk does not exceed the first trimester cut-off for Down syndrome or trisomy 18. The integrated screen calculation is awaiting the second trimester sample. NT WAS USED IN THE RISK CALCULATIONS. Thank you for submitting this patient's Part 1 specimen. These first trimester values will be incorporated with the second trimester values as part of the integrated testing process. Please submit the Part 2 specimen between 12/20/2015-02/13/2016 (15.0 and 22.9 weeks gestation) with 12/20/2015-01/02/2016 (15.0 - 16.9 weeks gestation) being optimal. When submitting Part 2, please include the following Specimen # from Part 1: [id number] 18 Regina rump length (CRL) was used to calculate gestational age. SHAHNAZ, if provided, was not used for gestational age dating. 19 This test was performed using a kit that has not been cleared or approved by the FDA. The analytical performance characteristics of this test have been determined by [facility]. This test should not be used for diagnosis without confirmation by other medically established means. 20 Interpretation reviewed by: Bella Delgadillo, Ph.D., [facility]. This is a screening test, not a diagnostic test. This risk assessment is based on demographic data provided by the ordering physician. Please notify the laboratory promptly if any data are incorrect. If you have questions concerning this report: For clinical consultation, call ; For technical questions, call ext [phone]; For recalculations, fax to . For additional information, please refer to http://ShareGrove.[employer]/faq/FAQ89 (This link is being provided for informational/educational purposes only.) 21 For additional information, please refer to http://ShareGrove.[employer]/faq/FAQ89 (This link is being provided for informational/educational purposes only.) 22 For additional information, please refer to http://ShareGrove.[employer]/faq/FAQ89 (This link is being provided for informational/educational purposes only.) 23 For additional information, please refer to http://ShareGrove.[employer]/faq/FAQ89 (This link is being provided for informational/educational purposes only.) 24 For additional information, please refer to http://ShareGrove.[employer]/faq/FAQ89 (This link is being provided for informational/educational purposes only.) 25 For additional information, please refer to http://ShareGrove.[employer]/faq/FAQ89 (This link is being provided for informational/educational purposes only.) 26 For additional information, please refer to http://eBaoTech/faq/FAQ89 (This link is being provided for informational/educational purposes only.) 27 For additional information, please refer to http://[employer]/faq/FAQ89 (This link is being provided for informational/educational purposes only.) 28 For additional information, please refer to http://[employer]/faq/FAQ89 (This link is being provided for informational/educational purposes only.) 29 For additional information, please refer to http://[employer]/faq/FAQ89 (This link is being provided for informational/educational purposes only.) 30 For additional information, please refer to http://[employer]/faq/FAQ89 (This link is being provided for informational/educational purposes only.) 31 For additional information, please refer to http://[employer]/faq/FAQ89 (This link is being provided for informational/educational purposes only.) 32 For additional information, please refer to http://[employer]/faq/FAQ89 (This link is being provided for informational/educational purposes only.) 33 For additional information, please refer to http://[employer]/faq/FAQ89 (This link is being provided for informational/educational purposes only.) 34 For additional information, please refer to http://[employer]/faq/FAQ89 (This link is being provided for informational/educational purposes only.) 35 For additional information, please refer to http://[employer]/faq/FAQ89 (This link is being provided for informational/educational purposes only.) 36 For additional information, please refer to http://[employer]/faq/FAQ89 (This link is being provided for informational/educational purposes only.) 37 For additional information, please refer to http://[employer]/faq/FAQ89 (This link is being provided for informational/educational purposes only.) 38 For additional information, please refer to http://[employer]/faq/FAQ89 (This link is being provided for informational/educational purposes only.) 39 For additional information, please refer to http://[employer]/faq/FAQ89 (This link is being provided for informational/educational purposes only.) 40 For additional information, please refer to http://[employer]/faq/FAQ89 (This link is being provided for informational/educational purposes only.) 41 For additional information, please refer to http://[employer]Bao[employer]/faq/FAQ89 (This link is being provided for informational/educational purposes only.) 42 For additional information, please refer to http://[employer]/faq/FAQ89 (This link is being provided for informational/educational purposes only.) 43 For additional information, please refer to http://[employer]ao[employer]/faq/FAQ89 (This link is being provided for informational/educational purposes only.) 44 For additional information, please refer to http://[employer]/faq/FAQ89 (This link is being provided for informational/educational purposes only.) 45 For additional information, please refer to http://[employer]/faq/FAQ89 (This link is being provided for informational/educational purposes only.) 46 For additional information, please refer to http://[employer]/faq/FAQ89 (This link is being provided for informational/educational purposes only.) 47 For additional information, please refer to http://[employer]/faq/FAQ89 (This link is being provided for informational/educational purposes only.) 48 For additional information, please refer to http://eBaoTech/faq/FAQ89 (This link is being provided for informational/educational purposes only.) 49 For additional information, please refer to http://eBaoTech/faq/FAQ89 (This link is being provided for informational/educational purposes only.) 50 SEE RESULT BELOW Name: LULY LÓPEZ : [address]: Nesha Juárez Acct: [id number] Unit: [id number] AGE: 35 Location: [facility] Re11/26/15 SEX: F Status: REG REF SPEC: [id number] SHANAE: 11/26/[address]: Nesha Juárez REQ: [id number] RECD: 11/27/15 STATUS: COMP _ SOURCE: URINE SPDESC: ORDERED: Urine Culture COMMENTS: [id number] Procedure Result Reported Site Urine Culture Final 11/28/15- 1251 ML No Growth (<1,000 CFU/mL) * ML - MAIN LAB ([facility]) . END OF REPORT * ML=Testing performed at Main Lab DEPARTMENT OF PATHOLOGY, [address] [place] [address] Trace Matos M.D. Director [facility] # [id number] 51 Therapeutic target for the treatment of diabetes Mellitus patients is <7% HBA1C, and in selective patients <6.0%.Please refer to [place] [employer] Diabetic care guidelines for further information. 52 Warning: A positive result is not useful for establishing a diagnosis of syphilis. In most situations, such a result may reflect a prior treated infection; a negative result can exclude a diagnosis of syphilis except for incubating or early primary disease. 53 Negative 54 Negative 55 RESULT: No antibody detected. Test Performed by: [address] [address] [employer]: Rishabh Almaraz II, M.D., Ph.D. 56 ADDITIONAL INFORMATION Testing performed by Inductively Coupled Plasma-Mass Spectrometry (ICP-MS). This test was developed and its performance characteristics determined by [facility] in a manner consistent with CLIA requirements. This test has not been cleared or approved by the U.S. Food and Drug Administration. 57 It is recognized that currently available assays for the detection of antibodies to HIV-1 and/or HIV-2 may not detect all infected individuals. HIV antibodies may be undetectable in some stages of the infection and in some clinical conditions. The performance of this assay has not been established for populations of infants or children. Assayed by Chemiluminescence Microparticle Immunoassay on the Siemens Advia Centaur CP. Values obtained with different methods or kits cannot be used interchangeably.The diagnostic specificity of the ADVIA Centaur 1/O/2 Enhanced assay in the low risk population was 99.90% (6052/6058) with a 95% confidence interval of 99.78 to 99.96%. 58 [id number] 59 SEE RESULT BELOW Name: LULY LÓPEZ : [address]: Jono Giron MD Acct: [id number] Unit: [id number] AGE: 35 Location: [facility] Re09/23/15 SEX: F Status: DEP ER SPEC: [id number] SHANAE: 09/23/15-[address] [facility] [address]: Jono Giron MD REQ: [id number] RECD: 09/24/15-7 STATUS: GLENN SHARMA DR: Jaclyn Physicians Rosi Rolle ELECTRON GUN ASSEMBLER _ SOURCE: URINE SPDESC: ORDERED: Urine Culture COMMENTS: [id number] Procedure Result Reported Site Urine Culture Final 09/26/15- 817 ML Organism 1 ESBL ESCHERICHIA COLI [place] Count 10-25,000 (Moderate) CFU/ML This isolate is an Extended Spectrum Beta-Lactamase Torts Law Professor (ESBL) strain, and as such is considered resistant for all penicillins, cephalosporins and aztreonam. 1. ESBL ESCHERICHIA COLI M.I.C. RX --------- ------ Ampicillin >=32 R Cefazolin >=64 R Cefepime R Ceftriaxone >=64 R Ciprofloxacin <=0.25 S Gentamicin <=1 S Levofloxacin 1 S Meropenem <=0.25 S Nitrofurantoin <=16 S Tetracycline <=1 S Pipercillin/Tazobactam <=4 S Trimethoprim/Sulfamethoxazole >=320 R Amoxicillin/Clavulanic Acid 4 S Aztreonam R CONTINUED ON NEXT PAGE * ML=Testing performed at Main Lab DEPARTMENT OF PATHOLOGY, [address] [place] [address] Trace Matos M.D. Director [facility] # [id number] Patient: LULY LÓPEZ [id number] (Continued) Specimen: [id number] Collected: 09/23/15-1531 Received: 09/24/15-1016 (Continued) Procedure Result Reported Site Urine Culture Final (continued) Contact the Microbiology Department for any additional antibiotic reporting. * ML - MAIN LAB ([facility]) . END OF REPORT * ML=Testing performed at Main Lab DEPARTMENT OF PATHOLOGY, [address] [place] [address] Trace Matos M.D. Director [facility] # [id number] 60 SEE RESULT BELOW Name: LULY LÓPEZ : [address]: Marnie Bennett MD Acct: [id number] Unit: [id number] AGE: 34 Location: [facility] Re08/28/15 SEX: F Status: REG REF SPEC: [id number] SHANAE: 08/28/[address]: Marnie Bennett MD REQ: [id number] RECD: 08/28/155 STATUS: SOUT _ ORDERED: IMAGE ANALYSIS, HPV/Thin Prep COMMENTS: [id number] FINAL DIAGNOSIS Negative for Intraepithelial lesion or Malignancy A. Ectocervical/Endocervical Specimen Adequacy: Satisfactory of evaluation Transformation zone component identified Patient Information: HPV: High risk HPV RNA testing regardless of pap results. Actual Specimen Date: 08/28/15 Last Menstrual Date: 08/13/15 Date of Last Specimen: 05/17/14 Previous Abnormal Pap Smears?:Y If Yes, enter Diagnosis: +HPV Date Time Test Result Flag (u) Normal Range 08/28/15 0916 HPV RNA Negative Negative The high-risk HPV types detected by the assay include: 16, 18, 31, 33, 35, 39, 45, 51, 52, 56, 58, 59, 66, and 68. Signed (signature on file) ROSE Driscoll(ASCP) 08/28 1334 This Pap test was evaluated with the assistance of the W[employer]seep Test Imaging System. Due to cytologic findings at the party plan sales unit sales leader microscope, comprehensive manual rescreening by a Health Promoter may be required. The Pap Smear is a screening test designed to aid in the detection of premalignant and malignant conditions of the uterine cervix. It is not a diagnostic procedure and should not be used as the sole means of detecting cervical cancer. Both false- positive and false- negative reports do occur. Depending on your risk status, a Pap smear should be obtained and evaluated every 1-3 years. END OF REPORT * ML=Testing performed at Main Lab DEPARTMENT OF PATHOLOGY, [address] [place] [address] Trace Matos M.D. Director [facility] # [id number] 61 The high-risk HPV types detected by the assay include: 16, 18, 31, 33, 35, 39, 45, 51, 52, 56, 58, 59, 66, and 68. 62 Membrane Rupture 63 SEE RESULT BELOW Name: LULY LÓPEZ : [address]: Marnie Bennett MD Acct: [id number] Unit: [id number] AGE: 34 Location: [facility] Re11/23/14 SEX: F Status: REG REF SPEC: [id number] SHANAE: 11/23/[address]: Marnie Bennett MD REQ: [id number] RECD: 11/23/14 STATUS: COMP _ SOURCE: SHAYLA/CAR/RE SPDESC: ORDERED: Shai Curiel Strp Scrn QUERIES: Is Patient Penicillin Allergic? N Is patient penicillin allergic and/or sensitivities needed? N Provider Requisition # C77#[id number]_ Procedure Result Verified Site Group B Strep Culture Screen Final 11/25/14- 0955 ML Group B Strep Screen Negative * ML - MAIN LAB ([facility]) . END OF REPORT * ML=Testing performed at Main Lab DEPARTMENT OF PATHOLOGY, [address] [place] [address] Trace Matos M.D. Director [facility] # [id number] 64 SCREEN NEGATIVE FOR OPEN NTD, DOWN SYNDROME AND TRISOMY 18. 65 Reference Range: <2.50 IDD <1.90 TWINS <4.00 TWINS IDD <3.50 TRIPLETS <4.50 66 The Serum Integrated Screen combines LA-A in the first trimester with AFP, unconjugated estriol, intact hCG and Inhibin A in the second trimester. This provides a useful screening test for detection of open neural tube defects, Down syndrome and Trisomy 18. It should be noted that normal results can never guarantee the of a normal baby and that 2 to 3 percent of newborns have some type of physical or mental defect, many of which are undetectable through any known diagnostic technique. Interpretation reviewed by: Michael Norris, Ph.D., [facility] This is a screening test, not a diagnostic test. This risk assessment is based on demographic data provided by the ordering physician. Please notify the laboratory promptly if any data are incorrect. If you have questions concerning this report: For clinical consultation, call ; For technical questions, call ext [phone]; For recalculations, fax to . This test was developed and its performance characteristics have been determined by [facility]. Performance characteristics refer to the analytical performance of the test. 67 For additional information, please refer to http://[email or web address]/faq/FAQ93 (This link is being provided for informational/educational purposes only.) 68 Thank you for submitting this patients Part 1 specimen. Please submit her Part 2 specimen between 07/06/2014-08/30/2014 (15.0 and 22.9 weeks gestation) with 07/06/2014-07/19/2014 (15.0 and 16.9 weeks gestation) being optimal. When submitting Part 2, please include the following Specimen # from Part 1: [id number] If you have questions concerning this report: For clinical consultation, call ; For technical questions, call ext [phone]; For recalculations, fax to . This test was developed and its performance characteristics have been determined by [facility]. Performance characteristics refer to the analytical performance of the test. For additional information, please refer to http://eBaoTech/faq/FAQ91 (This link is being provided for informational/educational purposes only.) 69 For additional information, please refer to http://[employer]/faq/FAQ91 (This link is being provided for informational/educational purposes only.) 70 For additional information, please refer to http://[employer]/faq/FAQ91 (This link is being provided for informational/educational purposes only.) 71 For additional information, please refer to http://ShareGrove.[employer]/faq/FAQ91 (This link is being provided for informational/educational purposes only.) 72 For additional information, please refer to http://[employer]/faq/FAQ91 (This link is being provided for informational/educational purposes only.) 73 For additional information, please refer to http://[employer]/faq/FAQ91 (This link is being provided for informational/educational purposes only.) 74 For additional information, please refer to http://e[employer]/faq/FAQ91 (This link is being provided for informational/educational purposes only.) 75 For additional information, please refer to http://[employer]/faq/FAQ91 (This link is being provided for informational/educational purposes only.) 76 For additional information, please refer to http://[employer]/faq/FAQ91 (This link is being provided for informational/educational purposes only.) 77 For additional information, please refer to http://[employer]/faq/FAQ91 (This link is being provided for informational/educational purposes only.) 78 For additional information, please refer to http://eB[employer]/faq/FAQ91 (This link is being provided for informational/educational purposes only.) 79 For additional information, please refer to http://eB[employer]/faq/FAQ91 (This link is being provided for informational/educational purposes only.) 80 For additional information, please refer to http://eB[employer]/faq/FAQ91 (This link is being provided for informational/educational purposes only.) 81 For additional information, please refer to http://eBao[employer]/faq/FAQ91 (This link is being provided for informational/educational purposes only.) 82 For additional information, please refer to http://eBaoTech/faq/FAQ91 (This link is being provided for informational/educational purposes only.) 83 For additional information, please refer to http://eBaoTech/faq/FAQ91 (This link is being provided for informational/educational purposes only.) 84 For additional information, please refer to http://eBaoTech/faq/FAQ91 (This link is being provided for informational/educational purposes only.) 85 For additional information, please refer to http://eBaoTech/faq/FAQ91 (This link is being provided for informational/educational purposes only.) 86 87 NEGATIVE; NONE OF THE MUTATIONS LISTED BELOW WERE DETECTED 88 This result does not rule out the presence of a mutation or a diagnosis of cystic fibrosis disease (CF).* The risk for mutations that cause CF other than the ones tested depends greatly on family history, clinical presentation, and ethnicity. Chance of Having a CF Mutation Ethnic Group Detection Before After Negative Rate Test Result Ashkenazi Quaker 94% 1 in 24 1 in 400 Non- 88% 1 in 25 1 in 208 -Marshallese 72% 1 in 46 1 in 164 -Marshallese 65% 1 in 65 1 in 186 -Marshallese 49% 1 in 94 1 in 184 Other insufficient data available For assistance with interpretation of these results, please contact your local [facility] genetic counselor or call [employer] ([phone]). 89 G85E (c.254 G>A) 3120+1 G>A(c.2988+1G>A) R334W (c.1000 C>T) 394delTT (c.262_263delTT) V520F (c.1558 G>T) 1717-1 G>A(c.1585-1 G>A) R553X (c.1657 C>T) 1898+1 G>A(c.1766+1 G>A) Q8256Y(c.3846 G>A) 3659delC (c.3437delC) R347H (c.1040 G>A) 621+1 G>T (c.489+1 G>T) R560T (c.1679 G>C) 3905insT (c.3773_3774insT) Y1957F(c.3484 C>T) 2183AA>G (c.2051_2052delAAinsG) L2750X(c.3909 C>G) 711+1 G>T (c.579+1 G>T) R117H (c.350 G>A) O786hky (c.1519_1521delATC) R347P (c.1040 G>T) 2184delA (c.2052delA) G542X (c.1624 G>T) 3876delA (c.3744delA) A455E (c.1364 C>A) 1078delT (c.948delT) S549N (c.1647 G>A) B739lme (c.1521_1523delCTT) S549R (c.1646 A>C) 2789+5 G>A(c.2657+5 G>A) G551D (c.1652 G>A) 3849+10kb C>T (c.1544-1961 C>T) This assay detects thirty-two mutations, including the twenty-three core mutations recommended by the [place] [employer] (ACMG) and the [place] [employer] (ACOG) for population-based CF carrier screening. Testing for the intron 8 5T polymorphism is performed only when the R117H mutation is detected. Testing for the I506V and I507V polymorphisms is performed only when a homozygous Delta F508 or Delta I507 mutation is detected. In addition to the ACMG/ACOG panel, this assay detects nine additional mutations. While these mutations are rare in the [place] population, the scientific and medical literature indicates that these mutations are not benign polymorphisms. 90 The mutations listed above are detected by an oligonucleotide ligation assay (JACQUELINE) after multiplex- polymerase chain reaction (PCR) amplification of specific CF gene regions. Fluorescent allele-specific reaction products are detected by capillary electrophoresis. Since genetic variation and other factors can affect the accuracy of direct mutation testing, the results of this testing should always be interpreted in light of clinical and familial data. 91 Benjamin Hanna, Ph.D.,[facility] Director, Molecular Genetics The performance characteristics of this assay have been determined by [facility]. Performance characteristics refer to the analytical performance of the test. For more information on this test, go to http://education.[employer]/faq/cfscreen 92 Reference Range: <0.9 Negative 0.9-1.1 Equivocal >1.1 Positive IgG persists for years and provides life-long immunity. Results from any one IgM assay should not be used as a sole determinant of a current or recent infection. Because IgM tests can yield false positive results and low levels of IgM antibody may persist for months post infection, reliance on a single test result could be misleading. If an acute infection is suspected, consider obtaining a new specimen and submit for both IgG and IgM testing in two or more weeks. To diagnose current infection, consider Parvovirus B19 DNA, PCR. 93 SUPERVIS OTH NORMAL PREG 94 Therapeutic target for the treatment of diabetes Mellitus patients is <7% HBA1C, and in selective patients <6.0%.Please refer to [place] Diabetes Association Diabetic care guidelines for further information. 95 YES 96 Female urine specimens have been self-validated by [facility] and have been granted conditional assay approval by [facility]. 97 The high-risk HPV types detected by the assay include: 16, 18, 31, 33, 35, 39, 45, 51, 52, 56, 58, 59, 66, and 68. 98 It is recognized that currently available assays for the detection of antibodies to HIV-1 and/or HIV-2 may not detect all infected individuals. HIV antibodies may be undetectable in some stages of the infection and in some clinical conditions. The performance of this assay has not been established for populations of infants or children. Assayed by Chemiluminescence Microparticle Immunoassay on the Siemens Advia Centaur CP. Values obtained with different methods or kits cannot be used interchangeably.The diagnostic specificity of the ADVIA Centaur 1/O/2 Enhanced assay in the low risk population was 99.90% (6052/6058) with a 95% confidence interval of 99.78 to 99.96%. 99 RUN DATE: 05/19/14 [facility] LIVE PAGE 1 RUN TIME: [address] [place] [id number] Specimen Inquiry Name: LULY LÓPEZ : [address]: Nesha Madrigal CNP Acct: [id number] Unit: [id number] AGE: 33 Location: [facility] Re05/17/14 SEX: F Status: REG REF SPEC: [id number] SHANAE: 05/17/14-[address] [facility] [address]: Nesha Madrigal CNP REQ: [id number] RECD: 05/17/14 STATUS: COMP _ SOURCE: URINE SPDESC: ORDERED: Urine Culture QUERIES: Provider Requisition # [id number] Procedure Result Verified Site Urine Culture Final 05/19/14- 1236 ML Organism 1 NORMAL SENA [place] Count 10-25,000 (Moderate) CFU/ML * ML - MAIN LAB ([facility]) . END OF REPORT * ML=Testing performed at Main Lab DEPARTMENT OF PATHOLOGY, [address] [place] [address] Trace Matos M.D. Director MICHEL # [id number] RUN DATE: 05/18/14 [facility] LAB LIVE PAGE 1 0 RUN TIME: [address] [place] [id number] Specimen Inquiry Name: BARRERALULY : [address]: Nesha Madrigal RIGGING LOFT REPAIRER Acct: [id number] Unit: [id number] AGE: 33 Location: [facility] Re05/17/14 SEX: F Status: REG REF SPEC: [id number] SHANAE: 05/17/14-[address]: Nesha Madrigal RIGGING LOFT REPAIRER REQ: [id number] RECD: 05/17/14-1056 STATUS: SOUT _ ORDERED: IMAGE ANALYSIS, HPV/Thin Prep FINAL DIAGNOSIS Negative for Intraepithelial lesion or Malignancy A. Ectocervical/Endocervical Specimen Adequacy: Satisfactory of evaluation Transformation zone component identified Patient Information: HPV: High risk HPV RNA testing regardless of pap results. Actual Specimen Date: 05/17/14 Last Menstrual Date: 03/10/14 ?: Y Other Pertinent History: Prior Unknown Date Time Test Result Flag (u) Normal Range 05/17/14 0930 HPV RNA POSITIVE H Negative The high-risk HPV types detected by the assay include: 16, 18, 31, 33, 35, 39, 45, 51, 52, 56, 58, 59, 66, and 68. Signed (signature on file) ROSE Eli (ASCP) 05/18 1411 This Pap test was evaluated with the assistance of the Ke[employer] Test Imaging System. Due to cytologic findings at the party plan sales unit sales leader microscope, comprehensive manual rescreening by a Health Promoter may be required. The Pap Smear is a screening test designed to aid in the detection of premalignant and malignant conditions of the uterine cervix. It is not a diagnostic procedure and should not be used as the sole means of detecting cervical cancer. Both false- positive and false- negative reports do occur. Depending on your risk status, a Pap smear should be obtained and evaluated every 1-3 years. END OF REPORT * ML=Testing performed at Main Lab DEPARTMENT OF PATHOLOGY, [address] [place] [address] Trace Matos M.D. Director [facility] # [id number] 10 <5.0 Negative 1 5.0 - 25.0 Indeterminate >25.0 Positive 10 <5.0 Negative 2 5.0 - 25.0 Indeterminate >25.0 Positive 10 Female reference ranges for Progesterone: 3 Follicular phase.......0.3 - 1.5 ng/ml Mid-luteal phase.......5.2 - 18.5 ng/ml Postmenopausal.........< 0.8 ng/ml 1st trimester.........4.7 - 50.0 ng/ml 2nd trimester.........19.4 - 45.3 ng/ml 10 <5.0 Negative 4 5.0 - 25.0 Indeterminate >25.0 Positive 10 <5.0 Negative 5 5.0 - 25.0 Indeterminate >25.0 Positive 10 The testing method is a manual immunenzymatic assay 6 manufactured by [employer] Values obtained with different assay methods or kits may be different and cannot be used interchangeably. If this test is being ordered as a tumor marker, results cannot be interpreted as absolute evidence for the presence or absence of malignant disease. Test Performed by: [place] [address] Grader Patrol: Lane Ta III, M.D. 10 Test Performed by: [address] [place] [address] Grader Patrol: Lane Ta III, M.D. 10 Postmenopausal Females < 20 8 Ovulating females: by day in cycle relative to LH Peak Follicular phase - 12 10-50 - 4 60-200 Mid-cycle - 1 120-375 Luteal phase + 2 50-155 + 6 60-260 + 12 15-115 10 Normally menstruating females 9 - Follicular phase 3 - 9 - Mid-cycle peak 4 - 23 - Luteal phase 1 - 6 Postmenopausal females 16 - 114 11 Normally menstruating females 0 - Follicular Phase 1 - 18 - Mid-Cycle Peak 24 - 105 - Luteal Phase 0.6 - 20 Postmenopausal females 15 - 62 11 RUN DATE: 01/28/12 [facility] LAB LIVE PAGE 1 1 RUN TIME: [address] [place] [address] Specimen Inquiry Name: LULY WATERMAN : [address]: Rosi Rolle NP Acct: [id number] Unit: [id number] AGE: 31 Location: [facility] Re01/27/12 SEX: F Status: REG REF SPEC: [id number] SHANAE: 01/27/12-[address] [facility] [address]: Rosi Rolle NP REQ: [id number] RECD: 01/28/12 STATUS: SOUT _ ORDERED: IMAGE ANALYSIS Negative for Intraepithelial lesion or Malignancy A. Ectocervical/Endocervical Specimen Adequacy: Satisfactory of evaluation Transformation zone component identified Patient Information: HPV: Thin Layer Pap Test w/reflex to high risk HPV DNA testing when ASCUS Actual Specimen Date: 01/27/12 Last Menstrual Date: 01/01/12 ?: N Post Menopausal?: N Hysterectomy?: N Other Pertinent History: Prior Unknown Signed (signature on file) ROSE Alcazar (ASCP) 01/28/12 1411 This Pap test was evaluated with the assistance of the PharmapodPrep Test Imaging System. Due to cytologic findings at the party plan sales unit sales leader microscope, comprehensive manual rescreening by a Health Promoter may be required. The Pap Smear is a screening test designed to aid in the detection of premalignant and malignant conditions of the uterine cervix. It is not a diagnostic procedure and should not be used as the sole means of detecting cervical cancer. Both false- positive and false- negative reports do occur. Depending on your risk status, a Pap smear shoudl be obtained and evaluated every 1-3 years. END OF REPORT * ML=Testing performed at Main Lab DEPARTMENT OF PATHOLOGY, [address] [place] [address] Trace Matos M.D. Director [facility] Permit #[id number] Males: < 5.0 miu/ml 2 Non females < 5.0 miu/ml Approx gestational age approx HCG range 0-1 week < 5.0-50 1-2 weeks 50-500 2-3 weeks 100-5000 3-4 weeks 500-10,000 1-2 months 10,000-200,000 2-3 months 15,000-100,000 Please note: The intended use of this assay is the quantitative determination of HCG in human serum or plasma for the early detection of . These assays should not be used to diagnose any condition unrelated to . If an HCG level is inconsistent with, or unsupported by, clinical evidence, results should be confirmed by an alternate HCG method. Procedures Date Code Description Status 08/09/2018 62599 OB Ultrasound First Trimester Completed 06/17/2018 00305 Colposcopy W/Biopsy Cervix/Endocervical Curettage Completed 05/27/2016 65447 Antepartum Care 7 Or More Visits Completed 05/18/2016 56051 Non-Stress Test Completed 05/06/2016 07140 Echography Uterus Limited Completed 01/23/2016 19718 Echography Uterus Complete Completed 11/26/2015 96405 Nuchal Translucency Ultrasound /First Gestation Completed 12/02/2014 73455 Obstetric Care Routine Completed 11/23/2014 88959 Echography Uterus Limited Completed 10/03/2014 85457 Injection Intramuscular Or Subcutaneous Completed 08/08/2014 73983 Echography Uterus Complete Completed 05/17/2014 33646 OB Ultrasound First Trimester Completed 06/27/2013 17590 Echography Transvaginal Completed Encounters Type Date Location Provider Dx Diagnosis Office Visit 05/05/2018 [facility] JOEL Humphries Z01.419 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 8:00a (general) (routine) w/o abn findings R10.30 Lower abdominal pain, unspecified Office Visit 05/29/2016 9:04a Delivery Juan Torres MD Z39.2 Encounter for routine follow-up Office Visit 05/18/2016 8:46a Delivery Marnie Bennett O47.03 False labor before 37 completed weeks of gest, third tri Office Visit 08/28/2015 8:00a [facility] Office Marnie Bennett Z12.4 Encounter for MD screening for malignant neoplasm of cervix Z01.419 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 (general) (routine) w/o abn findings Office Visit 01/15/2015 2:00p [facility] Office Gwendolyn Perez, Z39.2 Encounter for MD routine follow-up Office Visit 12/07/2013 3:30p [facility] Office Rosi Rolle NP 632 Missed Office Visit 06/29/2013 3:00p [facility] Office Gwendolyn Perez, 628.9 Infertility Female MD Unspec Origin Office Visit 06/17/2013 9:30a [facility] Office Gwendolyn Perez, 628.9 Infertility Female MD Unspec Origin Office Visit 01/27/2012 10:00a [facility] Office Rosi Rolle NP 646.90 Complication Unspec Other [facility] 632 Missed V72.31 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
--- OUTSIDE RECORDS SUMMARY | 2018-09-07 08:27 | XMS REPORT | Continuity of Care Document ---
:1980 Author Organization [facility] Address [address] [place] [address], [place] [id number] Phone Care Team Providers Name Role Phone Emilia Becker NP Unavailable Unavailable Allergies, Adverse Reactions, Alerts Substance Reaction Status No Known Allergies Active Medications Medication Instructions Dosage Effective Dates Status Comments (start - stop) Apri 0.15 mg-0.03 take 1 tablet by 1.00 tablet - Active mg tablet oral route every day Mifeprex 200 mg 1 po administer to - No Longer tablet pt in clinic Active misoprostol 200 mcg MAB: 4 tabs pv x - No Longer tablet 1; then 4 tabs Active buccal in 4 hrs (#8) MICRhoGAM Administer 250 - No Longer Ultra-Filtered PLUS unit IM Active 250 unit (50 mcg) intramuscular syringe Problems Condition Effective Dates (start Clinical Status Comments - stop) Encntr screen for dis of the bld/bld-form org/immun [facility] Encounter for test, result positive Encounter for elective termination of Less than 8 weeks gestation of Encounter for initial prescription of contraceptive pills Unspecified blood type, Rh negative RhD negative - Active Self reported. PW Procedures Procedure Date HEMOGLOBIN POSITIVE TEST New Patient AB Detailed MED Or PROB F/U VAG LAUREANO, THER/PROPH/DIAG INJ, SC/IM BLOOD PRESSURE OTHER Medical Services Contraceptive Mock Up Maker.Svc. Other Mock Up Maker.Svc. STI Mock Up Maker.Svc. POS PREG NOT DESIRED REFERRAL FOR MIFEPRISTONE, ORAL, 200 MG MISOPROSTOL, ORAL, 200 MCG #4 Micrhogam Results Test Name Date and Time Measure Units Reference Range Abnormal Flag Status Comments Panel Description: High Sensitivity Urine Test Final High Sensitivity Urine 15:28:23 PositiveInternal Quality Final Test Control: Positive Panel Description: Hemoglobin Final Hemoglobin 15:27:55 11.30 gm/dL Final Advance Directives Directive Yes / No Effective Date File Name No information Encounters Encounter Practice Location Reason(s) Diagnoses Date Provider Providers Description For Visit Copied on Encounter [facility] Med[facility] Encntr screen for [facility] [place] 1 dis of the Emilia. Provider: (chief bld/bld-form [address] complaint) org/immun [place], [address] for [place], , , [place], test, result [place], [place], [place], positiveEncounter [address], [place], [address]. [phone], for elective [place]. [place] termination of tel:[phone] pregnancyLess than [id number] 8 weeks gestation of pregnancyEncounter for initial [...] information Payers Payer name Insurance type Covered alliance party ID Authorization(s) [facility] CI [id number] Social History Type Description Quantity Date Captured Comments Alcohol Use Details Unknown Caffeine Use Details Unknown Tobacco Use Status Current non-smoker Smoking Status Never smoker Non-Smoking Tobacco : No Details Available : No Details Available 2018 Use Details Sex Female Vital Signs Date / Height Weight BMI Pulse Blood Temperature Respiratory Body Head BMI Pulse Inhaled Time: Rate Pressure Rate Surface Circumference percentile Ox Ox Area 10856 mm[Hg] 3:00 PM Chief Complaint And Reason For Visit Most recent encounter only, dated '08/17/2018 14:30'. Medication 1 Day (chief complaint) Reason For Referral Reason For Referral No [...] Information No information Assessments Type Assessment Date assessment Encntr screen for dis of the bld/bld-form org/immun [facility] assessment Encounter for test, result positive assessment Encounter for elective termination of assessment Less than 8 weeks gestation of assessment Encounter for initial prescription of contraceptive pills 2018 assessment Unspecified blood type, Rh negative Goals Health Concern Goal Type Priority Status Date No information Medical Equipment Description Device Clio Device Identifier Effective Dates (start - stop ) Status No information Mental Status Date Cognitive Assessment Normal Orientation Health Concerns Observation Date No information Concern Status Date No information
[2018-09-07 08:32] VITALS: BP 109/67
--- NOTE | 2018-09-07 09:53 | UC ---
Throat Pain/Nasal Neymar HPI - HPI Summary HPI Summary: 37 yo female presents with sinus pain/pressure/congestion, post nasal drip, and dry cough for the last 3 days. She tells me that her children have been sick with similar symptoms and are on antibiotics. She does not smoke. Has been using flonase OTC for her symptoms. Denies fever, chills, sore throat, SOB, rash. - History of Current Complaint Chief Complaint: UCGeneralIllness Stated Complaint: SINUS PRESSURE COUGH Time Seen by Provider: 09/07/18 09:49 Hx Obtained From: Patient Hx Last Menstrual Period: 08/12/18 Severity: Moderate Pain Intensity: 5 Pain Scale Used: 0-10 Numeric - Allergies/Home Medications Allergies/Adverse Reactions: Allergies Allergy/AdvReac Type Severity Reaction Status Date / Time No Known Allergies Allergy Verified 09/07/18 08:32 Home Medications: Home Medications Fluticasone NASAL SPRAY 50MCG* [Flonase NASAL SPRAY 50MCG*] 2 spray BOTH NARES DAILY 09/07/18 [History Confirmed 09/07/18] PMH/Surg Hx/FS Hx/Imm Hx - Additional Past Medical History Additional PMH: Seasonal allergies - Surgical History Surgical History: None - Family History Known Family History: Positive: Hypertension Negative: Cardiac Disease, Diabetes - Social History Occupation: Employed Full-time Lives: With Family Alcohol Use: Weekly Substance Use Type: None Smoking Status (MU): Former Smoker Type: Cigarettes Have You Smoked in the Last Year: No Household Exposure Type: Cigarettes - Immunization History Most Recent Influenza Vaccination: 12/26/15 Most Recent Tetanus Shot: 10/03/14 Most Recent Pneumonia Vaccination: not indicated Review of Systems All Other Systems Reviewed And Are Negative: Yes Constitutional: Positive: Negative Skin: Positive: Negative Eyes: Positive: Negative ENT: Positive: Nasal Discharge, Sinus Congestion, Sinus Pain/Tenderness Respiratory: Positive: Cough Cardiovascular: Positive: Negative Gastrointestinal: Positive: Negative Neurological: Positive: Negative Psychological: Positive: Negative Physical Exam - Summary Physical Exam Summary: GENERAL: NAD. WDWN. No pain distress. SKIN: No rashes, sores, lesions, or open wounds. HEENT: Head: AT/NC Eyes: EOM intact. Conjunctiva clear without inflammation or discharge. Ears: Hearing grossly normal. TMs intact, no bulging, erythema, or edema. Nose: Nasal mucosa mildly swollen and erythematous with yellow/ clear discharge. TTP maxillary and frontal sinus. Positive post nasal drip Throat: Posterior oropharynx without exudates, erythema, or tonsillar enlargement. Uvula midline. NECK: Supple. Nontender. No lymphadenopathy. CHEST: CTAB. No r/r/w. No accessory muscle use. Breathing comfortably and in no distress. CV: RRR. Without m/r/g. Pulses intact. NEURO: Alert. PSYCH: Age appropriate behavior. Triage Information Reviewed: Yes Vital Signs: Initial Vital Signs Temp 98.7 F 09/07/18 08:25 Pulse 71 09/07/18 08:25 Resp 18 09/07/18 08:25 BP 109/67 09/07/18 08:25 Pulse Ox 100 09/07/18 08:25 Vital Signs Reviewed: Yes Throat Pain/Nasal Course/Dx - Course Course Of Treatment: Sinusitis Discussed viral vs bacterial causes with the pt and she prefers to be on anbx at this time. - Differential Dx/Diagnosis Provider Diagnosis: Sinusitis Discharge - Sign-Out/Discharge Documenting (check all that apply): Patient Departure All imaging exams completed and their final reports reviewed: No Studies - Discharge Plan Condition: Stable Disposition: HOME Prescriptions: Amoxicillin PO (*) [Amoxicillin 875 MG (*)] 875 mg PO BID #14 tab Patient Education Materials: Sinusitis (ED) Referrals: Diane Cutler MD [Primary Care Provider] - Additional Instructions: If you develop a fever, shortness of breath, chest pain, new or worsening symptoms - please call your PCP or go to the ED immediately. Continue using your flonase - Billing Disposition and Condition Condition: STABLE Disposition: Home
== END 2018-09-07 10:27 | disposition home or self-care (01) ==
LOC: UCEAST 08:07
DX: J32.9 Chronic sinusitis, unspecified (principal); Z87.891 Personal history of nicotine dependence
CPT/HCPCS: 99212; G0463